=== PATIENT | male | born 1990 | race Two or more races ===

== ENCOUNTER 2020-06-01 21:52 | Emergency (ER) | payer SELFPAY ==
[~2020-06-01] VITALS: Ht 177.8 cm; Wt 113.4 kg
[2020-06-01 22:33] VITALS: BP 135/76
== END 2020-06-01 22:59 ==
LOC: ER 21:54
DX: S50.312A Abrasion of left elbow, initial encounter (principal); S80.211A Abrasion, right knee, initial encounter; W19.XXXA Unspecified fall, initial encounter; Y93.89 Activity, other specified; Y92.89 Other specified places as the place of occurrence of the external cause; Y99.8 Other external cause status